=== PATIENT | female | born 1980 | race Caucasian/White ===

== ENCOUNTER 2019-03-16 18:52 | Emergency (ER) | payer BC, OTHER ==
[~2019-03-16] VITALS: Ht 154.9 cm; Wt 44.7 kg
[~2019-03-16 18:52] MED LIST: None at this time
[2019-03-16 19:03] VITALS: BP 118/88
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
[2019-03-16] MEDS ORDERED: ONDANSETRON ODT 4 MG ONE (19:28)
[2019-03-16] MEDS ORDERED: METHOCARBAMOL 750 MG TABLET ONE (19:28)
[2019-03-16] MEDS ORDERED: METHOCARBAMOL 750 MG TABLET PO ONE (19:30)
[2019-03-16] MEDS ORDERED: ONDANSETRON ODT 4 MG PO ONE (19:30)
== END 2019-03-16 19:49 | disposition home or self-care (01) ==
LOC: ED 19:10
DX: S16.1XXA Strain of muscle, fascia and tendon at neck level, initial encounter (principal); S09.90XA Unspecified injury of head, initial encounter; V49.49XA Driver injured in collision with other motor vehicles in traffic accident, initial encounter; Y93.89 Activity, other specified; Y92.89 Other specified places as the place of occurrence of the external cause; Y99.8 Other external cause status
CPT/HCPCS: 99283; Q0162

== ENCOUNTER → 2020-10-13 | Outpatient (CLI) | payer BC | END | disposition home or self-care (01) | LOC: CFH 08:18 | PROVIDERS: ATTEND Nurse Practitioner Primary Care | DX: M81.0 Age-related osteoporosis without current pathological fracture (principal) | CPT/HCPCS: 77080 ==